=== PATIENT | female | born 1970 | race Caucasian/White ===

== ENCOUNTER 2016-12-05 10:59 | Emergency (ER) | payer OTHER ==
[~2016-12-05] VITALS: Ht 165.1 cm; Wt 78.0 kg
[~2016-12-05 10:59] MED LIST: IBUP-232 PO; TYLE3 PO
[2016-12-05 11:08] VITALS: BP 133/66; PULSE 80; RESP 16; TEMP 98.7; O2SAT 97
--- NOTE | 2016-12-05 11:34 | PD ---
HPI Chief Complaint: Head Injury Time Seen by Provider: 11:21 Travel History International Travel<30 days: No Contact w/Intl Traveler<30days: No Traveled to known affect area: No History of Present Illness HPI 46 y/o female presents status post trip and fall and hitting the back of her head with positive loss of consciousness that was witnessed by her family member. She had loss of consciousness of about 5 minutes per her daughter. She states it took her this long to convince her to come in. She states that she is anxious that she's had a friend from a head injury 6 months after she hit her head when she didn't get evaluated. Her mother denies other specific complaints at this time other than pain in her sternum from where her chin hit her chest. Quality pain is sharp. Severity is moderate. Pain is worse with movement. She denies other specific modifying factors. PFSH Past Medical History Medical History: Denies Significant Hx Blood Disorders: No Heart Rhythm Problems: No Cancer: No Cardiac Catheterization: No Cardiovascular Problems: No High Cholesterol: No Diabetes: No Diminished Hearing: No Endocrine: No Gastrointestinal Disorders: No Genitourinary: No Heparin Induced Thrombocytopen: No Hypertension: No Immune Disorder: No Implanted Vascular Access Dvce: No Musculoskeletal: No Psychiatric: No Reproductive: No Respiratory: No Myocardial Infarction: No ?: Not Menopausal: Yes Tubal Ligation: Yes Past Surgical History Appendectomy: Yes Coronary Artery Bypass Graft: No Gynecologic Surgery: Yes (tubal) Hysterectomy: Yes Oral Surgery: Yes (tonsillectomy) Pacemaker: No Tonsillectomy: Yes Other Surgery: Yes Family History Family Myocardial Infarction: Yes Social History Alcohol Use: Yes (occ) Tobacco Use: Yes (1 ppd) Substance Use: No Allergies-Medications (Allergen,Severity, Reaction): Coded Allergies: No Known Allergies (Verified , 12/05/16) Reported Meds & Prescriptions Reported Meds & Active Scripts Active No Active Prescriptions or Reported Medications Review of Systems Except as stated in HPI: all other systems reviewed are Neg Physical Exam Narrative General: 46 y/o patient in no apparent distress Skin: trauma noted to back of head with hematoma and abrasion, ecchymosis noted to central chest wall Eyes: Pupils equal, eomi ENT: no septal hematoma NECK: no pain with palpation and range of motion in midline, nexus criteria negative, mild tenderness to bilateral lateral trapezius area Cardiovascular: Regular rate and rhythm Respiratory: Normal respiratory effort noted, clear to auscultation bilaterally Abdomen: soft, nontender, nondistended Back: No step-offs, entire midline spine nontender with palpation Extremities: No pain over main joints Neuro: awake, alert, sensation and motor grossly intact Data Data Last Documented VS Vital Signs Date Time Temp Pulse Resp B/P (MAP) Pulse Ox O2 Delivery O2 Flow Rate FiO2 12/05/16 12:43 78 18 106/80 (89) 100 Room Air 12/05/16 11:[address] Brain W/O Iv Contrast(Rout) (12/05/16 ) Chest, Single Ap (12/05/16 ) MDM Medical Decision Making Medical Screen Exam Complete: Yes Emergency Medical Condition: Yes Medical Record Reviewed: Yes (past history confirmed) Interpretation(s) Last [address] 12/05/16 0000 Signed Impressions: Service Date/Time: Monday, December 05, 2016 11:37 - CONCLUSION: Normal examination. Mauricio Jo MD Chest X-Ray 12/05/16 0000 Signed Impressions: Service Date/Time: Monday, December 05, 2016 11:59 - CONCLUSION: No acute disease. Mauricio Jo MD Differential Diagnosis Intercranial bleed, fracture, strain, pneumothorax Narrative Course Will check CT brain and chest x-ray which patient agrees to and reevaluate ed workup no acute, Patient denies any new complaints, all questions answered. Patient knows that follow up is incumbent on them and to return to the emergency room immediately if new or worsening symptoms develop. Patient given strict return precautions, vitals reviewed and are normal, agrees to further workup as an outpatient. Diagnosis Primary Impression: Head injury, acute Qualified Codes: S09.90XA - Unspecified injury of head, initial encounter Additional Impression: Chest wall pain Patient Instructions: General Instructions Additional Instructions: return as needed, tylenol as needed, follow with primary Med/Other Pt SpecificInfo: No Change to Meds Scripts No Active Prescriptions or Reported Meds Disposition: 01 DISCHARGE HOME Condition: Stable Blessing Panye MD Dec 05, 2016 11:34
--- NOTE | 2016-12-05 11:43 | RADRPT ---
EXAM DATE/TIME: 12/05/2016 11:37 [facility] COMPARISON: No previous studies available for comparison. INDICATIONS : Fell, striking left posterior head area. RADIATION DOSE: 64.50 CTDIvol (mGy) MEDICAL HISTORY : None SURGICAL HISTORY : Tonsillectomy. Hysterectomy.Appendectomy. ENCOUNTER: Initial ACUITY: 3 days PAIN SCALE: 8/10 LOCATION: Left occipital TECHNIQUE: Multiple contiguous axial images were obtained of the head. Using automated exposure control and adj ustment of the mA and/or kV according to patient size, radiation dose was kept as low as reasonably a chievable to obtain optimal diagnostic quality images. DICOM format image data is available electro nically for review and comparison. FINDINGS: CEREBRUM: The ventricles are normal for age. No evidence of midline shift, mass lesion, hemorrhage or acute in farction. No extra-axial fluid collections are seen. POSTERIOR FOSSA: The cerebellum and brainstem are intact. The 4th ventricle is midline. The cerebellopontine angle i s unremarkable. EXTRACRANIAL: The visualized portion of the orbits is intact. SKULL: The calvaria is intact. No evidence of skull fracture. CONCLUSION: Normal examination. Mauricio Jo MD on December 05, 2016 at 11:41 Board Certified Radiologist. This report was verified electronically.
[2016-12-05 12:43] VITALS: BP 106/80; PULSE 78; RESP 18; O2SAT 100
--- NOTE | 2016-12-05 12:44 | RADRPT ---
EXAM DATE/TIME: 12/05/2016 11:59 [facility] COMPARISON: No previous studies available for comparison. INDICATIONS : Sternal pain post fall 4 days ago. MEDICAL HISTORY : Smoker. SURGICAL HISTORY : Tonsillectomy. Tubal ligation. Hysterectomy. Appendectomy. ENCOUNTER: Initial ACUITY: 4 - 6 days PAIN SCORE: 6/10 LOCATION: chest FINDINGS: A single view of the chest demonstrates the lungs to be symmetrically aerated without evidence of mas s, infiltrate or effusion. The cardiomediastinal contours are unremarkable. Osseous structures are intact. CONCLUSION: No acute disease. Mauricio Jo MD on December 05, 2016 at 12:42 Board Certified Radiologist. This report was verified electronically.
== END 2016-12-05 12:58 | disposition home or self-care (01) ==
LOC: PHED 10:59
DX: S09.90XA Unspecified injury of head, initial encounter (principal); R07.89 Other chest pain; W01.0XXA Fall on same level from slipping, tripping and stumbling without subsequent striking against object, initial encounter
CPT/HCPCS: 70450; 71010; 99284

== ENCOUNTER 2017-06-03 13:22 | Emergency (ER) | payer BC, OTHER ==
[~2017-06-03] VITALS: Ht 165.1 cm; Wt 77.0 kg
[2017-06-03 13:28] VITALS: BP 128/60; PULSE 74; RESP 18; TEMP 98.2; O2SAT 97
[2017-06-03 13:50] LABS: BLOOD, URINE LARGE (NEG); GLUCOSE,URINE 250 mg/dL (NEG); KETONE, URINE TRACE mg/dL (NEG); NITRITE,URINE POS (NEG); URINE LEUKOCYTE ESTERASE MOD (NEG)
[2017-06-03 13:52] LABS: BILIRUBIN, URINE NEG (NEG)
[2017-06-03 13:56] LABS: SQUAMOUS EPITHELIAL CELL URINE > 8 /hpf (0-5); URINE COLOR ORANGE (YELLW/STRAW)
[2017-06-03 13:57] LABS: BACTERIA, URINE FEW /hpf; RBC, URINE INNUM /hpf (0-3); TRANSITIONAL EPI CELLS, URINE > 8 /hpf
[2017-06-03] MEDS ORDERED: NITROFURANTOIN MONOHYD MACROCR 100 MG CAP PO ONE (14:45)
[2017-06-03] MEDS ORDERED: KETOROLAC TROMETHAMINE 60 MG/2 ML (IM) VIAL IM ONE (14:45)
[2017-06-03] MEDS ORDERED: MACR100C2 PO (14:51)
--- NOTE | 2017-06-03 14:51 | PD ---
HPI Chief Complaint: Complaint Time Seen by Provider: 14:20 Travel History International Travel<30 days: No Contact w/Intl Traveler<30days: No Traveled to known affect area: No History of Present Illness HPI 47-year-old female here with dysuria, urgency, frequency 2 days. She denies fever or chills. No abdominal pain or flank pain. She reports a "burning" sensation of her urethra. No vaginal discharge. She's had similar symptoms in the past with UTIs. Symptoms are unrelieved by [id number] AZO, Tylenol, ibuprofen. Severity is moderate. PFSH Past Medical History Medical History: Denies Significant Hx Blood Disorders: No Heart Rhythm Problems: No Cancer: No Cardiac Catheterization: No Cardiovascular Problems: No High Cholesterol: No Diabetes: No Diminished Hearing: No Endocrine: No Gastrointestinal Disorders: No Genitourinary: No Heparin Induced Thrombocytopen: No Hypertension: No Immune Disorder: No Implanted Vascular Access Dvce: No Musculoskeletal: No Psychiatric: No Reproductive: No Respiratory: No Immunizations Current: Yes Myocardial Infarction: No Tetanus Vaccination: < 5 Years Influenza Vaccination: No ?: Not Menopausal: Yes Tubal Ligation: Yes Past Surgical History Appendectomy: Yes Coronary Artery Bypass Graft: No Gynecologic Surgery: Yes (tubal) Hysterectomy: Yes Oral Surgery: Yes (tonsillectomy) Pacemaker: No Tonsillectomy: Yes Other Surgery: Yes Social History Alcohol Use: Yes (occ) Tobacco Use: Yes (1 ppd) Substance Use: No Allergies-Medications (Allergen,Severity, Reaction): Coded Allergies: No Known Allergies (Verified Adverse Reaction, Unknown, 06/03/17) Reported Meds & Prescriptions Reported Meds & Active Scripts Active No Active Prescriptions or Reported Medications Review of Systems Except as stated in HPI: all other systems reviewed are Neg General / Constitutional: No: Fever Eyes: No: Visual changes HENT: No: Headaches Cardiovascular: No: Chest Pain or Discomfort Respiratory: No: Shortness of Breath Gastrointestinal: No: Abdominal Pain Genitourinary: Positive: Urgency, Frequency, Dysuria Musculoskeletal: No: Pain Physical Exam Narrative GENERAL: Alert and well-appearing 47-year-old female. SKIN: Warm and dry. HEAD: Normocephalic. EYES: No injection or drainage. NECK: Supple CARDIOVASCULAR: Regular rate and rhythm RESPIRATORY: Breath sounds equal bilaterally. No accessory muscle use. GASTROINTESTINAL: Abdomen soft, non-tender, nondistended. MUSCULOSKELETAL: No cyanosis, or edema. BACK: No CVA tenderness. Data Data Last Documented VS Vital Signs Date Time Temp Pulse Resp B/P (MAP) Pulse Ox O2 Delivery O2 Flow Rate FiO2 06/03/17 13:28 98.2 74 18 128/60 (82) 97 Orders Orders Urinalysis - C+S If Indicated (06/03/17 13:30) Urine Culture (06/03/17 13:34) Ketorolac Inj (Toradol Inj) (06/03/17 14:45) Nitrofurantoin Monohyd Macrocr (Macrobid (06/03/17 14:45) Labs Laboratory Tests Test 06/03/17 13:34 Urine Collection Type CLEAN CATCH Urine Color ORANGE Urine Turbidity MOD Urine pH 5.0 Urine Specific [place] 1.034 Urine Protein 300 OR GREATER mg/dL Urine Glucose (UA) 250 mg/dL Urine Ketones TRACE mg/dL Urine Occult Blood LARGE Urine Nitrite POS Urine Bilirubin NEG Urine Leukocyte Esterase MOD Urine RBC INNUM /hpf Urine WBC 50-99 /hpf Urine Squamous Epithelial Cells > 8 /hpf Urine Transitional Epithelial Cells > 8 /hpf Urine Bacteria FEW /hpf Microscopic Urinalysis Comment CULTURE INDICATED Urine Collection Time 13:34 [facility] Medical Decision Making Medical Screen Exam Complete: Yes Emergency Medical Condition: Yes Interpretation(s) UA: Turbid, positive for nitrates, moderate leuk esterase, and numerous RBCs, WBC5 50-99, few bacteria Differential Diagnosis UTI, pyelonephritis, urethritis Narrative Course 47-year-old female here with UTI symptoms. No CVA tenderness. Vital signs are stable. UA suggestive of infection. She'll be treated with Macrobid. Diagnosis Primary Impression: UTI (urinary tract infection) Qualified Codes: N30.01 - Acute cystitis with hematuria Referrals: Primary Care Physician Additional Instructions: Macrobid as directed. Tylenol and ibuprofen for pain. Stay well hydrated. Return if he developed new or worsening symptoms. Scripts Nitrofurantoin Monohydrate Macrocrystals (Macrobid) 100 Mg Cap 100 MG PO BID for Infection for 5 Days, #10 CAP 0 Refills Prov: Michelle Vang 06/03/17 Disposition: 01 DISCHARGE HOME Condition: Stable Michelle Vang Jun 03, 2017 14:51
== END 2017-06-03 14:57 | disposition home or self-care (01) ==
LOC: PHEFT 13:22
DX: N39.0 Urinary tract infection, site not specified (principal); B96.89 Other specified bacterial agents as the cause of diseases classified elsewhere; F17.200 Nicotine dependence, unspecified, uncomplicated
CPT/HCPCS: 81001; 87077; 87086; 87186; 96372; 99283; J1885